=== PATIENT | male | born 1965 | race Caucasian/White ===

== ENCOUNTER 2019-02-16 07:33 | Day surgery (SDC) | payer OTHER ==
[~2019-02-16] VITALS: Ht 175.3 cm; Wt 93.9 kg
[~2019-02-16 07:33] MED LIST: CRESTOR40 MG PO; GLUCOPHAGE850 MG PO; METAMUCIL0.4 GM PO; METOPROLOL ER-1 EAC1 PO; RANITIDINE HCL300 M1 PO; TYLENOL325 MG PO; ZESTRIL40 MG PO
--- NOTE | 2019-02-16 09:24 | NUR ---
02/16/19 0924 Michelle Graham 0916 PT ARRIVED IN PACU AWAKE WITH NO C/O'S. ABD SOFT.
--- NOTE | 2019-02-16 09:59 | OR ---
[facility] [address], [place] [address] Signed DATE OF OPERATION: 02/16/2019 SURGEON: Augustine Etienne MD PREOPERATIVE DIAGNOSES: 1. Kay-diverticulosis. 2. Left upper quadrant abdominal pain. 3. Paternal uncle with colon cancer in his 60s. POSTOPERATIVE DIAGNOSES: 1. Moderate kay-diverticulosis. 2. 4 mm polyps at mid right colon and 20 cm. 3. Mildly enlarged indurated prostate. PROCEDURE: Colonoscopy with hot biopsy. ESTIMATED BLOOD LOSS: None. INDICATIONS: Ivania is a 53-year-old gentleman, who was using naproxen on a fairly regular basis. He ended up with GI bleeds in 2007 and 2014. He has given up NSAIDs altogether now and uses Tylenol intermittently. He also is known to have kay-diverticulosis. He is also having some pain around the splenic flexure and it seems to extend down the left side of his abdomen and improves with bowel movements. He had been on Cipro, Flagyl, and developed diarrhea and he said it was much better after that. He gives no family history of colon polyps. However, his paternal uncle developed colon cancer in his early 60s. He later from other issues. I had met with Ivania in the office and I gave him a pamphlet on colonoscopy. He understands the nature of the test along with its risks including, but not limited to gas, bloating, crampy abdominal pain, bleeding, perforation requiring surgery, and missed diagnosis. He also understands the need for IV conscious sedation. He had expressed understanding and wished to proceed. PROCEDURE NOTE: Ivania was taken into our endoscopy suite and placed in the left lateral decubitus position. He was given divided doses of 7 mg of Versed and 150 mcg of fentanyl. A digital rectal exam was performed and he has a mildly enlarged and moderately indurated prostate gland. The left is slightly more prominent than the right. The adult colonoscope was introduced and advanced under direct visualization of the camera into Electronically Signed By: AUGUSTINE ETIENNE MD 02/16/19 0959 PATIENT NAME: IVANIA WILEY OPERATIVE REPORT DATE OF : 67 REPORT #: [id number] PHYSICIAN: AUGUSTINE ETIENNE MD PCP: ELVA CASTELLANOS MD REPORT IS CONFIDENTIAL AND NOT TO BE RELEASED WITHOUT AUTHORIZATION [facility] [address] [place], [place] [address] Signed the cecum itself. He did require little extra sedation and some abdominal compression as we came down the right colon. His prep was good. The scope was slowly withdrawn. We took pictures throughout for photodocumentation. We could easily see the appendiceal orifice and the ileocecal valve. The above two polyps were easily removed with the help of hot biopsy forceps. He does have kay-diverticulosis. They were moderate in size, moderate in number, and scattered about. No obvious narrowing in the left or sigmoid colon based on the endoscopy. Rectum was unremarkable. Upon retroflexion of scope, there was no additional pathology noted above the anal canal. After this, the gas was suctioned out and the colonoscope removed. Ivania tolerated the procedure quite well. RECOMMENDATIONS: I will see Ivania back in my office in 7 to 14 days to review his results. He will need colonoscopy every 5 years based on his family history. He could also consider a barium enema if he has concerns about narrowing in the colon. MD MAGDALENO Pedroza/MOOKIEL /[id number] cc: KIANA Garvin MD Andrew L Bower, MD Copies: DIAMOND ACOSTA MALCOLM MD BOWER, ANDREW L MD ~ Electronically Signed By: AUGUSTINE ETIENNE MD 02/16/19 0959 PATIENT NAME: IVANIA WILEY OPERATIVE REPORT DATE OF : 67 REPORT #: [id number] PHYSICIAN: AUGUSTINE ETIENNE MD PCP: ELVA CASTELLANOS MD REPORT IS CONFIDENTIAL AND NOT TO BE RELEASED WITHOUT AUTHORIZATION
--- NOTE | 2019-02-16 10:11 | NUR ---
PT IS ALERT, ORIENTED AND SUPPORTED BY HIS LUCILLE. PT HAS HAD PREVIOUS SCOPES, SEEMED TO TOLERATE PREP. TRYING TO STAY DILIGENT WITH HIS HEALTHCARE. PT REQUESTED PRAYER, WILL FOLLOW NEEDED
== END 2019-02-16 09:54 | disposition home or self-care (01) ==
LOC: DS 07:33 → OPS 07:33 → DS 09:15 → OPS 09:15
PROVIDERS: Colon & Rectal Surgery
PROC: 0DBE8ZZ Excision of Large Intestine, Via Natural or Artificial Opening Endoscopic (ICD-10-PCS; 2019-02-16)
PROC: 0DBF8ZZ Excision of Right Large Intestine, Via Natural or Artificial Opening Endoscopic (ICD-10-PCS; principal; 2019-02-16 09:00)
DX: D12.2 Benign neoplasm of ascending colon (principal); D12.6 Benign neoplasm of colon, unspecified; K57.30 Diverticulosis of large intestine without perforation or abscess without bleeding; N42.89 Other specified disorders of prostate; I10 Essential (primary) hypertension; K44.9 Diaphragmatic hernia without obstruction or gangrene; K21.9 Gastro-esophageal reflux disease without esophagitis; K59.09 Other constipation; Z98.890 Other specified postprocedural states; Z80.0 Family history of malignant neoplasm of digestive organs; Z88.0 Allergy status to penicillin; Z79.899 Other long term (current) drug therapy; Z79.84 Long term (current) use of oral hypoglycemic drugs
CPT/HCPCS: 99153; G0500; J2250; J3010

== ENCOUNTER 2019-12-03 05:35 | Day surgery (SDC) | payer OTHER ==
[~2019-12-03] VITALS: Ht 175.3 cm; Wt 88.5 kg
[~2019-12-03 05:35] MED LIST changes: +HYDROCODON-ACE1 EA11 PO; +OMEPRAZOLE20 MG PO; +ONCE DAILY1 EACH PO; +VITAMIN D325 MC2 PO
[2019-12-03] MEDS ORDERED: GABAPENTIN600 MG PO (07:20)
[2019-12-03] MEDS ORDERED: NORCO 7.5-3251 EACH PO (07:20)
--- NOTE | 2019-12-03 07:22 | NUR ---
12/03/19 0722 Tana Gordillo 0718 PATIENT ARRIVES TO PACU AWAKE BUT DROWSY. RESP EVEN AND UNLABORED, ROOM AIR SATS >95%. DENIES PAIN OR NAUSEA. LIMITED MOVEMENT IN RIGHT SHOULDER, FEELS "HEAVY." PATIENT HAD RIGHT SHOULDER BLOCK IN DAY SURGERY PRIOR TO PROCEDURE.
--- NOTE | 2019-12-06 07:26 | OR ---
[facility] [address] [place], [place] [address] Signed DATE OF OPERATION: 12/03/2019 SURGEON: Robbie Perry MD PREOPERATIVE DIAGNOSIS: Postoperative adhesive capsulitis, right shoulder. POSTOPERATIVE DIAGNOSIS: Postoperative adhesive capsulitis, right shoulder. PROCEDURE PERFORMED: Manipulation under anesthesia, right shoulder. BUTTON FACING MACHINE OPERATOR: None. ANESTHESIA: Sedation with interscalene block. BLOOD LOSS: None. BRIEF HISTORY: Ivania is a 54-year-old male, who underwent shoulder surgery about 6 months ago. Postoperative course had stalled and he had stiffness in all planes. Risks and benefits of manipulation under anesthesia were discussed with him and his therapist concurred. DESCRIPTION OF PROCEDURE: Once consent was obtained, he was taken to the operating room, placed on the operating room bed. He was placed under sedation and the shoulder was checked for passive range of motion. He had an external rotation to -5, abduction to 45, forward flexion to 145, internal rotation . We then began the manipulation. External rotation was approached first. We were able to manipulate him to about 70 degrees, external rotation with audible and palpable crackling of the scar tissue. He was then taken into abduction slowly abducted until he reached about 140 degrees. Forward flexion was taken all way to 180. Internal rotation was taken to about the L2 level. External rotation in the abducted position was taken to 90 degrees. He was taken through these range of motions multiple times and was felt to be stable at that point. He was then awakened and taken to the recovery room in satisfactory condition. All sponge, needle, and instrument Electronically Signed By: ROBBIE PERRY MD 12/06/19 0726 PATIENT NAME: IVANIA WILEY OPERATIVE REPORT DATE OF : 67 REPORT #: [id number] PHYSICIAN: ROBBIE PERRY MD PCP: ELVA CASTELLANOS MD REPORT IS CONFIDENTIAL AND NOT TO BE RELEASED WITHOUT AUTHORIZATION [facility] [address] [place] [address] [place] [address] Signed counts were correct. Robbie Perry MD BA/MODL /[id number] Copies: ~ Electronically Signed By: ROBBIE PERRY MD 12/06/19 0726 PATIENT NAME: IVANIA WILEY OPERATIVE REPORT DATE OF : 67 REPORT #: [id number] PHYSICIAN: ROBBIE PERRY MD PCP: ELVA CASTELLANOS MD REPORT IS CONFIDENTIAL AND NOT TO BE RELEASED WITHOUT AUTHORIZATION
== END 2019-12-03 08:10 | disposition home or self-care (01) ==
LOC: DS 05:35
PROVIDERS: Specialist
PROC: 0RSJXZZ Reposition Right Shoulder Joint, External Approach (ICD-10-PCS; principal; 2019-12-03 06:45)
DX: M75.01 Adhesive capsulitis of right shoulder (principal); I10 Essential (primary) hypertension; I25.10 Atherosclerotic heart disease of native coronary artery without angina pectoris; Z79.899 Other long term (current) drug therapy; Z79.84 Long term (current) use of oral hypoglycemic drugs; Z88.0 Allergy status to penicillin; Z88.8 Allergy status to other drugs, medicaments and biological substances; Z98.890 Other specified postprocedural states
CPT/HCPCS: 64415; 76942; A9270; J0690; J1100; J2001; J2250; J2704; J2795; J7121